=== PATIENT | female | born 1935 ===

== ENCOUNTER → 2016-11-04 | Outpatient (CLI) | payer MEDICARE, OTHER ==
[~2016-11-04] MED LIST: ASPIRIN LO-DOSE81 MG PO; AVALIDE 300-121 EACH PO; CEFTIN250 MG PO; OSCAL + D500 MG PO; PRADAXA150 MG PO; SYNTHROID25 MCG PO; TENORMIN25 MG PO; TENORMIN50 MG PO; ZANTAC (NON-FO150 MG PO; ZOCOR20 MG PO
== END | disposition disaster alternative care site (69) ==
LOC: LKCL 11:08
DX: R19.7 Diarrhea, unspecified (principal)